=== PATIENT | male | born 1955 | race Caucasian/White ===

== ENCOUNTER → 2023-03-07 | Day surgery (SDC) | payer MEDICARE ==
[2023-03-03 12:23] VITALS: BMI 25.8
[~2023-03-07] MED LIST: LACTATED RINGERS 1,000 ML IV SCH; LIDOCAINE 1% (10MG/ML) FOR IV START INTRADERMA PRN; LIDOCAINE 2% INJ 20 MG/ML (2 ML VIAL) ONE; PROPOFOL 10 MG/ML 20 ML VIAL IV ONE
[2023-03-07 07:39] VITALS: TEMP 97
--- NOTE | 2023-03-07 08:34 | P.PCN ---
Date of Procedure: 03/07/23 Procedure(s) Performed: Brief history: Patient is a pleasant 67-year-old white male scheduled for an elective upper endoscopy as well as colonoscopy as a part of evaluation of GERD/Tee's esophagus and history of colon polyps Procedure performed: Esophagogastroduodenoscopy with biopsy Colonoscopy and snare polypectomy Preoperative diagnosis: GERD/Tee's esophagus History of colon polyps Anesthesia: MAC Procedure: After informed consent was obtained from the patient was brought into the endoscopy unit and IV sedation was administered by anesthesia under continuous monitoring. Initially upper endoscopy was done. The Olympus GF 160 video endoscope was inserted inserted into the mouth and esophagus intubated without any difficulty and was gradually advanced into the stomach and duodenum and carefully examined. The bulb and second part of the duodenum appeared normal. The scope was then withdrawn into the stomach adequately insufflated with air and upon careful examination the antrum and body, cardia and fundus appeared normal. Multiple small gastric polyps noted in the body the stomach which was biopsied. The scope was then withdrawn into the esophagus. The GE junction was located at 33 cm to the incisors. Under size hiatal hernia noted. It appeared regular with no erythema erosions or ulcerations. Rest of the esophagus appeared normal. No evidence of Tee's esophagus. Patient tolerated the procedure well. At this time the patient continued to remain sedation. Initial digital rectal examination was normal. Olympus CF 160 video colonoscope was then inserted into the rectum and gradually advanced to the cecum without any difficulty. Careful examination was performed as the scope was gradually being withdrawn. The prep was excellent. The cecum, ascending colon, transverse colon appeared normal. Transverse colon there was a 1 m polyp removed by snare polypectomy. In the descending colon there was a 5 limited polyp removed by snare polypectomy. In the sigmoid colon there was a 3 mm polyp removed by snare polypectomy. Moderate sigmoid diverticulosis seen. Rest of the, descending colon, sigmoid colon and rectum appeared normal. Retroflexion was performed in the rectum and no lesions were noted. Patient tolerated the procedure well. Impression: 1. Upper endoscopy revealed moderate size hiatal hernia, multiple small gastric polyps and irregular GE junction but no evidence of Tee's esophagus 2. Colonoscopy revealed 1 cm transverse colon polyp, 5 mm descending colon polyp and 5 mm; polyp status post polypectomy and moderate sigmoid diverticulosis Recommendations: Findings of this examination were discussed with the patient as well as his family. He was advised to follow with the biopsy results. If the biopsy reveals adenoma he can have a repeat colonoscopy in 3 years.
[2023-03-07 08:42] VITALS: RESP 16
[2023-03-07 09:10] VITALS: BP 118/60; PULSE 68
== END ==
LOC: ORWHC2ENDO 07:10
PROVIDERS: ATTEND Internal Medicine Gastroenterology
DX: Z12.11 Encounter for screening for malignant neoplasm of colon (principal); D12.2 Benign neoplasm of ascending colon; D12.4 Benign neoplasm of descending colon; D12.5 Benign neoplasm of sigmoid colon; K57.30 Diverticulosis of large intestine without perforation or abscess without bleeding; K31.7 Polyp of stomach and duodenum; K44.9 Diaphragmatic hernia without obstruction or gangrene; K21.9 Gastro-esophageal reflux disease without esophagitis; I10 Essential (primary) hypertension; E03.9 Hypothyroidism, unspecified; Z87.891 Personal history of nicotine dependence; Z79.890 Hormone replacement therapy; Z79.899 Other long term (current) drug therapy
CPT/HCPCS: 88305; 45385; 43239; J2704; J2001

== ENCOUNTER 2024-02-09 12:57 | Day surgery (SDC) | payer MEDICARE ==
[2024-02-09] MEDS: IV FLUID CONTINUATION 1,000 ML IV ONE (13:32)
[2024-02-09] MEDS: LACTATED RINGERS 1,000 ML IV SCH (13:36)
[2024-02-09 14:13] VITALS: TEMP 98.5
[2024-02-09] MEDS ORDERED: PROPOFOL 10 MG/ML 20 ML VIAL IV ONE (14:55)
--- NOTE | 2024-02-09 15:09 | P.PCN ---
Date of Procedure: 02/09/24 Procedure(s) Performed: BRIEF HISTORY: Patient is a 68-year-old pleasant white male scheduled for an elective sigmoidoscopy as a part evaluation of rectal pain and rectal discomfort for the last 1 month duration. PROCEDURE PERFORMED: Flexible sigmoidoscopy . PREOPERATIVE DIAGNOSIS: Anal rectal discomfort for 1 month duration. IV sedation per Anesthesia. PROCEDURE: After informed consent was obtained, the patient, was brought into the endoscopy unit. IV sedation was administered by Anesthesia under continuous monitoring. Digital rectal examination revealed a small thrombosed external hemorrhoid. Initially the Olympus CF-160 flexible video colonoscope was then inserted in the rectum, gradually advanced into the descending colon without any difficulty., So the descending colon, sigmoid colon, and rectum appeared normal. Polyp in the sigmoid colon that was removed by cold biopsy. Scattered sigmoid diverticulosis seen. Retroflexion was performed in the rectum and no lesions were seen. The patient tolerated the procedure well. IMPRESSION: Thrombosed external hemorrhoid 3 mm sigmoid polyp status post cold biopsy Scattered sigmoid diverticulosis RECOMMENDATIONS: Findings of this examination were discussed with the patient as well as his family. He was advised to be on a high-fiber diet. Use sitz bath's and 96 as needed..
[2024-02-09 16:44] VITALS: BP 131/83; PULSE 66; RESP 18
== END 2024-02-09 16:20 | disposition home or self-care (01) ==
LOC: ORWHC2ENDO 12:57
PROVIDERS: ATTEND Internal Medicine Gastroenterology
DX: D12.5 Benign neoplasm of sigmoid colon (principal); K57.30 Diverticulosis of large intestine without perforation or abscess without bleeding; K64.5 Perianal venous thrombosis; I10 Essential (primary) hypertension; E03.9 Hypothyroidism, unspecified; K21.9 Gastro-esophageal reflux disease without esophagitis; Z85.46 Personal history of malignant neoplasm of prostate; Z79.899 Other long term (current) drug therapy; Z79.890 Hormone replacement therapy
CPT/HCPCS: 88305; 45331; J2704